=== PATIENT | female | born 1985 | race Two or more races ===

== ENCOUNTER 2018-12-11 15:44 | Outpatient (CLI) | payer OTHER | END 2018-12-11 17:04 | disposition still patient (30) | LOC: NST 15:44 | DX: Z34.83 Encounter for supervision of other normal pregnancy, third trimester (principal) ==

== ENCOUNTER → 2018-12-16 | Outpatient (CLI) | payer OTHER | END | disposition home or self-care (01) | LOC: NST 14:28 | DX: Z34.83 Encounter for supervision of other normal pregnancy, third trimester (principal) ==

== ENCOUNTER 2018-12-25 14:03 | Outpatient (CLI) | payer OTHER | END 2018-12-25 15:17 | disposition home or self-care (01) | LOC: NST 14:03 | DX: Z34.83 Encounter for supervision of other normal pregnancy, third trimester (principal) ==

== ENCOUNTER 2019-01-01 15:57 | Inpatient (IN) | payer OTHER ==
[~2019-01-01] VITALS: Ht 162.6 cm; Wt 2.7 kg
[2019-02-06] MEDS ORDERED: PRENATAL TABLE1 EACH PO (11:36)
== END 2019-02-09 09:46 | disposition home or self-care (01) | DRG 788 ==
LOC: OB/GYN 01-16 12:15 → LDR 02-06 10:45 → OB/GYN 02-06 10:45
PROVIDERS: ADMIT Obstetrics & Gynecology
PROC: 4A1HXCZ Monitoring of Products of Conception, Cardiac Rate, External Approach (ICD-10-PCS; 2019-02-06)
PROC: 10D00Z1 Extraction of Products of Conception, Low, Open Approach (ICD-10-PCS; principal; 2019-02-06 16:00)
DX: O82 Encounter for cesarean delivery without indication (principal); Z3A.39 39 weeks gestation of pregnancy; Z37.0 Single live birth

== ENCOUNTER 2019-01-30 11:48 | Outpatient (CLI) | payer OTHER | END 2019-01-30 12:41 | disposition home or self-care (01) | LOC: NST 11:48 | DX: Z34.83 Encounter for supervision of other normal pregnancy, third trimester (principal) ==

== ENCOUNTER 2022-06-09 07:00 | Day surgery (SDC) | payer OTHER ==
[~2022-06-09 07:00] MED LIST: PRENATAL TABLE1 EACH PO
== END 2022-06-09 12:50 | disposition home or self-care (01) ==
LOC: CIR.AMB 07:00
PROVIDERS: ATTEND Obstetrics & Gynecology
DX: O02.1 Missed abortion (principal); O72.2 Delayed and secondary postpartum hemorrhage; I10 Essential (primary) hypertension; Z88.2 Allergy status to sulfonamides; Z91.013 Allergy to seafood; Z91.041 Radiographic dye allergy status; Z20.822 Contact with and (suspected) exposure to COVID-19

== ENCOUNTER 2023-12-21 12:20 | Emergency (ER) | payer OTHER ==
[~2023-12-21] VITALS: Ht 152.4 cm; Wt 49.0 kg
[~2023-12-21 12:20] MED LIST changes: +PROTONIX40 MG PO; +TRAM1TAB98 PO
[2023-12-21 14:13] LABS: HEMATOCRIT 40.6 % (36.0-45.00); HEMOGLOBIN 13.5 g/dL (12.0-15.00); MEAN CELL VOLUME 82.3 fL (80.00-100.00); MEAN CORPUSCULAR HEMOGLOBIN 27.4 pg (27.00-32.0); MEAN CORPUSCULAR HGB CONC 33.2 g/dl (32.0-36.0); PLATELET COUNT 229 K/uL (150-450); RED BLOOD COUNT 4.93 M/uL (4.00-6.00); RED CELL DISTRIBUTION WIDTH 14.2 % (11.5-14.5)
[2023-12-21 14:41] LABS: BILIRUBIN TOTAL 0.94 mg/dL (0.3-1.2); CALCIUM 9.7 mg/dL (8.5-10.1); CREATININE SERUM 0.57 mg/dL (0.55-1.02); GFR 120.01; GLOBULINA 4.7 G/DL (2.4-3.5); POTASSIUM 3.64 mEq/L (3.5-5.1); TOTAL PROTEIN 8.7 gm/dL (6.4-8.2)
[2023-12-21 14:42] LABS: BILIRUBIN TOTAL 1.02 mg/dL (0.3-1.2); BILIRUBIN,CONJUGATED 0.21 mg/dL (0.0-0.2); BILIRUBIN,UNCONJUGATED 0.81 mg/dL (0.0-0.6)
[2023-12-21 14:47] LABS: PH,URINE 6.5 (5.0-8.0); URINE APPEARANCE Clear; URINE BILIRRUBIN Negative (NEGATIVE); URINE BLOOD Trace; URINE COLOR Yellow; URINE GLUCOSE Negative (NEGATIVE); URINE KETONE Negative (NEGATIVE); URINE LEUKOCYTE Negative; URINE NITRATE Negative; URINE PROTEIN Negative (NEGATIVE); URINE UROBILINOGEN 0.2 E.U./dl
[2023-12-21 14:51] LABS: URINE BACTERIA 100.6 uL (0.0-1933); URINE RBC 25.4 uL (0.0-20.8)
[2023-12-21 14:58] LABS: URINE EPITHELIAL CELLS 0.1 uL (0.0-38.8)
[2023-12-21] MEDS ORDERED: ORPHENADRINE CITRATE 30 MG/ML AMPUL IM STA (17:36)
[2023-12-21] MEDS ORDERED: KETOROLAC TROMETHAMINE 30 MG VIAL IM STA (17:36)
[2023-12-21] MEDS ORDERED: FAMOTIDINE/PF 20 MG/2 ML VIAL IV PUSH STA (17:36)
[2023-12-21] MEDS ORDERED: KETOROLAC TROMETHAMINE 30 MG VIAL ONE (17:40)
[2023-12-21] MEDS ORDERED: FAMOTIDINE/PF 20 MG/2 ML VIAL ONE (17:40)
[2023-12-21] MEDS ORDERED: ORPHENADRINE CITRATE 30 MG/ML AMPUL ONE (17:40)
[2023-12-21] MEDS ORDERED: ZANAFLEX4 M1 PO (17:45)
[2023-12-21] MEDS ORDERED: DICLOFENAC POTA50 MG PO (17:45)
[2023-12-21] MEDS ORDERED: PEPCID20 MG PO (17:45)
== END 2023-12-21 17:51 | disposition home or self-care (01) ==
LOC: ER 12:22
PROVIDERS: General Practice
DX: R10.31 Right lower quadrant pain (principal); Z88.2 Allergy status to sulfonamides; Z88.8 Allergy status to other drugs, medicaments and biological substances; Z91.013 Allergy to seafood